=== PATIENT | female | born 1955 | race Caucasian/White ===

== ENCOUNTER 2017-12-02 10:36 | Inpatient (IN) ==
[2017-12-02] MEDS ORDERED: *HR* FentaNYL (PF) 100 MCG/2 ML VIAL IVP ONE ×3 (10:55→16:28)
[2017-12-02] MEDS ORDERED: Ondansetron 4 MG/2 ML VIAL IVP ONE ×2 (10:55→12:46)
--- NOTE | 2017-12-02 10:59 | Emergency Department Note ---
Disposition Clinical Impression: Lumbar degenerative disc disease Lumbar stenosis Qualifiers: Neurogenic claudication status: without neurogenic claudication Qualified Code( s): M48.061 - Spinal stenosis, lumbar region without neurogenic claudication Disposition: Admitted As Inpatient Condition: Good Referrals: Able-Sally Sullivan DO [Primary Care Provider] - Forms: ED Satisfaction Letter, Work/School Release Time of Disposition: 14:57 Abdominal Pain HPI - General Chief Complaint: ED Abdominal Pain Stated Complaint: abd pain Time Seen by Provider: 12/02/17 10:47 Source: patient Mode of arrival: ambulatory Limitations: no limitations Nursing Notes Reviewed: Yes Vital Signs Reviewed: Yes - History of Present Illness HPI Narrative: 62-year-old female presents with left flank pain and began over the last day or so. Says it severe. 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 Consistency: constant Location: L flank Pain Scale: 10 Quality: cramping, aching Radiation: none Migration to: no migration Improves with: nothing Worsens with: nothing Associated symptoms: Reports: nausea, dysuria Treatments prior to arrival: none - Related Data Allergies Allergy/AdvReac Type Severity Reaction Status Date / Time acetaminophen Allergy Swelling Verified 12/02/17 10:39 [From Darvocet-N] of Lip/Tongue/Throat azithromycin [From Zithromax] Allergy Swelling Verified 12/02/17 10:39 of Lip/Tongue/Throat Penicillins Allergy Swelling Verified 12/02/17 10:39 of Lip/Tongue/Throat propoxyphene Allergy Swelling Verified 12/02/17 10:39 [From Darvocet-N] of Lip/Tongue/Throat All systems ED: reviewed and negative except as stated. Constitutional: Denies: fever, chills, weakness, weight change Eyes: Denies: eye pain, eye discharge, vision change ENT ED: Denies: ear pain, throat pain, dental pain, hearing loss, epistaxis, congestion, dysphagia Cardiovascular: Denies: chest pain, palpitations, dyspnea on exertion, edema, syncope Respiratory: Denies: cough, dyspnea, wheezes, hemoptysis, stridor Gastrointestinal: Reports: abdominal pain. Denies: nausea, vomiting, diarrhea, constipation, hematemesis, melena, hematochezia Genitourinary: Denies: dysuria, frequency, hematuria, discharge Musculoskeletal: Denies: back pain, neck pain, arthralgia, myalgia Integumentary: Denies: rash, abrasion, lesions Neurological: Denies: headache, weakness, numbness, paresthesias, confusion, abnormal gait, vertigo Psychiatric: Denies: anxiety, depression, suicidal thoughts, homicidal thoughts , auditory hallucinations, visual hallucinations Endocrine: Denies: fatigue Hematological/Lymphatic: Denies: easy bleeding, easy bruising Allergic/Immunologic: Denies: facial swelling, urticaria Abdominal Pain PMH - Past Medical History Medical history: Reports: fibromyalgia, RA, other Female Surgical History: Reports: sinus surgery, other Psychiatric history: Reports: no psych history - Social History Smoking status: Former smoker Alcohol use: Reports: rarely Drug use: Reports: none Physical Exam - General Limitations: no limitations General appearance: alert - Head Head exam: atraumatic, normocephalic, normal inspection - Eye Eye exam: Present: normal appearance, PERRL, EOMI - ENT ENT exam: normal exam, normal oropharynx, mucous membranes moist - Neck Neck exam: Present: normal inspection, full ROM, trachea midline - Chest Chest inspection: Present: normal inspection, symmetric chest wall rise - Respiratory Respiratory exam: Present: normal lung sounds bilaterally - Cardiovascular Cardiovascular exam: Present: regular rate, normal rhythm, normal heart sounds - Abdominal Exam Abdominal exam: Present: soft, tenderness. Absent: distention, guarding, rebound, rigidity Abdominal tenderness: Present: diffuse - Extremities Exam Extremities exam: Present: normal inspection, full ROM. Absent: tenderness, pedal edema - Expanded Lower Extremity Exam Neurovascular/Tendon exam: Absent: motor deficit, sensory deficit, tendon deficit Gait: observed and normal - Back Exam Back exam: Present: normal inspection, full ROM. Absent: tenderness - Neurological Exam Neurological exam: Present: alert, oriented X3 - Psychiatric Psychiatric exam: Present: normal affect, normal mood - Skin Skin exam: Present: warm, dry, intact, normal color Course - Reevaluation(s) Reevaluation #1: 62-year-old with severe radicular back pain MRI obtained that showed significant stenosis. Patient will be admitted for pain control and evaluation by back surgery. Time: 14:56 - Consultations Consultation #1: Discussed with Dr. Woods he will see the patient in consult. Time: 14:55 Consultation #2: Discussed with Dr. Garcia admit Time: 15:22 Vital Signs Temperature 96.6 F L 12/02/17 10:40 Pulse Rate 71 12/02/17 10:40 Respiratory Rate 20 12/02/17 10:40 Blood Pressure 166/78 12/02/17 10:40 O2 Sat by Pulse Oximetry 96 12/02/17 10:40 Temperature 96.6 F L 12/02/17 10:40 Pulse Rate 82 12/02/17 14:25 Respiratory Rate 16 12/02/17 14:25 Blood Pressure 117/80 12/02/17 14:25 O2 Sat by Pulse Oximetry 93 12/02/17 14:25 Oxygen Delivery Oxygen Delivery Room Air Abdominal Pain - Lab Data Lab results reviewed: Yes I reviewed the patient's lab results. Result diagrams: 12/02/17 11:11 12/02/17 11:11 Lab Results 12/02/17 12/02/17 12/02/17 Range/Units 10:55 11:11 11:11 WBC 10.5 (4.3-11.1) K/mcL RBC 5.19 H (3.82-4.97) M/mcL Hgb 14.5 (11.5-15.4) g/dL Hct 44.8 (35.3-44.9) % MCV 86.3 (83.0-100.0) fL MCH 27.9 L (28.0-33.3) pg MCHC 32.4 (31.6-35.5) g/dL RDW 12.9 (11.5-14.5) % Plt Count 181 (140-400) K/mcL MPV 11.9 (9.4-12.4) fL Immature Gran % 0.3 (0-4) % Seg Neutrophils % 75.7 % Lymphocytes % 15.4 % Monocytes % 5.8 % Eosinophils % 2.2 % Basophils % 0.6 % Neutrophils # 8.0 (1.6-8.9) K/mcL Lymphocytes # 1.6 (0.6-4.6) K/mcL Monocytes # 0.6 (0.0-1.3) K/mcL Eosinophils # 0.2 (0.0-0.6) K/mcL Basophils # 0.1 (0.0-0.2) K/mcL Sodium 136 (136-145) mEq/L Potassium 4.6 (3.5-5.1) mEq/L Chloride 104 (98-107) mEq/L Carbon Dioxide 25 (23-29) mEq/L BUN 12 (8-23) mg/dL Creatinine 0.78 (0.60-1.20) mg/dL Est GFR ( Amer) > 60 (> 60) Est GFR (Non-Af Amer) > 60 (> 60) BUN/Creatinine Ratio 15 (6-26) Glucose 102 (70-105) mg/dL Calculated Osmolality 282 (280-300) Lactic Acid (0.5-2.2) mmol/L Calcium 9.4 (8.6-10.3) mg/dL Total Bilirubin 1.3 H (0.3-1.0) mg/dL Direct Bilirubin 0.2 (0.0-0.2) mg/dL Indirect Bilirubin 1.1 (0.0-1.2) mg/dL AST 19 (13-39) Units/L ALT 17 (7-52) Units/L Alkaline Phosphatase 85 (34-104) Units/L Serum Total Protein 7.2 (6.4-8.9) g/dL Albumin 4.2 (3.5-5.7) g/dL Globulin 3.0 (2.4-3.5) g/dL Albumin/Globulin Ratio 1.4 (1.1-2.2) Amylase 31 (29-103) Units/L Lipase 17 (11-82) Units/L Urine Color Yellow (Yellow) Urine Clarity Slightly Hazy (Clear) Urine pH 6.0 (5.0-8.0) pH Units Ur Specific [place] 1.023 (1.010-1.025) Urine Protein Negative (Neg-Trace) mg/dL Urine Glucose (UA) Normal (Normal) mg/dL Urine Ketones Negative (Negative) mg/dL Urine Blood Negative (Negative) Urine Nitrite Negative (Negative) Urine Bilirubin Negative (Negative) Urine Urobilinogen Normal (Normal) mg/dL Ur Leukocyte Esterase Trace H (Negative) Urine Microscopic RBC 3-5 H (0-3) per hpf Urine Microscopic WBC 3-5 H (0-3) per hpf Ur Squamous Epith Cells Many H (None-Few) per lpf Urine Bacteria None Seen (None-Few) per hpf Hyaline Casts None Seen (None-Few) per lpf Ur Culture Indicated? NO. (NO) 12/02/17 Range/Units 11:55 WBC (4.3-11.1) K/mcL RBC (3.82-4.97) M/mcL Hgb (11.5-15.4) g/dL Hct (35.3-44.9) % MCV (83.0-100.0) fL MCH (28.0-33.3) pg MCHC (31.6-35.5) g/dL RDW (11.5-14.5) % Plt Count (140-400) K/mcL MPV (9.4-12.4) fL Immature Gran % (0-4) % Seg Neutrophils % % Lymphocytes % % Monocytes % % Eosinophils % % Basophils % % Neutrophils # (1.6-8.9) K/mcL Lymphocytes # (0.6-4.6) K/mcL Monocytes # (0.0-1.3) K/mcL Eosinophils # (0.0-0.6) K/mcL Basophils # (0.0-0.2) K/mcL Sodium (136-145) mEq/L Potassium (3.5-5.1) mEq/L Chloride (98-107) mEq/L Carbon Dioxide (23-29) mEq/L BUN (8-23) mg/dL Creatinine (0.60-1.20) mg/dL Est GFR ( Amer) (> 60) Est GFR (Non-Af Amer) (> 60) BUN/Creatinine Ratio (6-26) Glucose (70-105) mg/dL Calculated Osmolality (280-300) Lactic Acid 1.0 (0.5-2.2) mmol/L Calcium (8.6-10.3) mg/dL Total Bilirubin (0.3-1.0) mg/dL Direct Bilirubin (0.0-0.2) mg/dL Indirect Bilirubin (0.0-1.2) mg/dL AST (13-39) Units/L ALT (7-52) Units/L Alkaline Phosphatase (34-104) Units/L Serum Total Protein (6.4-8.9) g/dL Albumin (3.5-5.7) g/dL Globulin (2.4-3.5) g/dL Albumin/Globulin Ratio (1.1-2.2) Amylase (29-103) Units/L Lipase (11-82) Units/L Urine Color (Yellow) Urine Clarity (Clear) Urine pH (5.0-8.0) pH Units Ur Specific [place] (1.010-1.025) Urine Protein (Neg-Trace) mg/dL Urine Glucose (UA) (Normal) mg/dL Urine Ketones (Negative) mg/dL Urine Blood (Negative) Urine Nitrite (Negative) Urine Bilirubin (Negative) Urine Urobilinogen (Normal) mg/dL Ur Leukocyte Esterase (Negative) Urine Microscopic RBC (0-3) per hpf Urine Microscopic WBC (0-3) per hpf Ur Squamous Epith Cells (None-Few) per lpf Urine Bacteria (None-Few) per hpf Hyaline Casts (None-Few) per lpf Ur Culture Indicated? (NO) - Radiology Data Radiology results reviewed: Yes I reviewed the patient's radiology results. Abdomen/Pelvis CT 12/02/17 10:49 IMPRESSION: No acute abnormality of the abdomen or pelvis. D/ / Diego Correa MD / Diego Correa MD Interpreting Provider: Diego Correa MD Abdomen/Pelvis CT 12/02/17 10:49 IMPRESSION: No acute abnormality of the abdomen or pelvis. D/ / Diego Correa MD / Diego Correa MD Interpreting Provider: Diego Correa MD Lumbar Spine MRI 12/02/17 12:42 IMPRESSION: Degenerative thecal sac narrowing and neural foraminal stenosis of the lower lumbar spine. Nonspecific geographic signal abnormality along the superior endplate of L2 with corresponding and mild adjacent soft tissue enhancement. This could reflect a stress reaction. Infection considered less likely but clinical correlation and follow-up exam advised. D/ / Jasbir Altman MD / Jasbir Altman MD Interpreting Provider: Jasbir Altman MD
[2017-12-02 11:04] LABS: Bilirubin,Urine Negative (Negative); Blood,Urine Negative (Negative); Color,Urine Yellow (Yellow); Glucose,Urine (UA) Normal (Normal); Ketones,Urine Negative (Negative); Leukocyte Esterase,Urine Trace (Negative); Nitrite,Urine Negative (Negative); Protein,Urine Negative (Neg-Trace); Specific Gravity,Urine 1.023 (1.010-1.025); Urobilinogen,Urine Normal (Normal)
[2017-12-02 11:06] LABS: Bacteria,Urine None Seen per hpf (None-Few); Hyaline Casts,Urine None Seen per lpf (None-Few); Squamous Epithelial Cell,Urine Many per lpf (None-Few)
[2017-12-02 11:07] LABS: Clarity,Urine Slightly Hazy (Clear)
[2017-12-02 11:42] LABS: Basophils # 0.1 K/mcL (0.0-0.2); Basophils % 0.6 %; Eosinophils # 0.2 K/mcL (0.0-0.6); Eosinophils % 2.2 %; Hematocrit 44.8 % (35.3-44.9); Hemoglobin 14.5 g/dL (11.5-15.4); Immature Granulocytes % 0.3 % (0-4); Lymphocytes # 1.6 K/mcL (0.6-4.6); Lymphocytes % 15.4 %; Mean Corpuscular HGB Conc 32.4 g/dL (31.6-35.5); Mean Corpuscular Hemoglobin 27.9 pg (28.0-33.3); Mean Corpuscular Volume 86.3 fL (83.0-100.0); Mean Platelet Volume 11.9 fL (9.4-12.4); Monocytes # 0.6 K/mcL (0.0-1.3); Monocytes % 5.8 %; Platelet Count 181 K/mcL (140-400); Red Blood Count 5.19 M/mcL (3.82-4.97); Red Cell Distribution Width 12.9 % (11.5-14.5); Segmented Neutrophils % 75.7 %
[2017-12-02 12:02] LABS: Alanine Aminotransferase 17 Units/L (7-52); Albumin 4.2 g/dL (3.5-5.7); Albumin/Globulin Ratio 1.4 (1.1-2.2); Alkaline Phosphatase 85 Units/L (34-104); Amylase 31 Units/L (29-103); Aspartate Amino Transferase 19 Units/L (13-39); BUN/Creatinine Ratio 15 (6-26); Bilirubin,Direct 0.2 mg/dL (0.0-0.2); Bilirubin,Indirect 1.1 mg/dL (0.0-1.2); Bilirubin,Total 1.3 mg/dL (0.3-1.0); Blood Urea Nitrogen 12 mg/dL (8-23); Calcium 9.4 mg/dL (8.6-10.3); Carbon Dioxide 25 mEq/L (23-29); Chloride 104 mEq/L (98-107); Glucose 102 mg/dL (70-105); Lipase 17 Units/L (11-82); Osmolality,Calculated 282 (280-300); Potassium 4.6 mEq/L (3.5-5.1); Sodium 136 mEq/L (136-145); Total Protein 7.2 g/dL (6.4-8.9); eGFR For African Americans > 60 (> 60); eGFR For Non-African Americans > 60 (> 60)
[2017-12-02] MEDS ORDERED: Ondansetron ODT 4 MG TAB.RAPDIS SL ONE (12:43)
[2017-12-02] MEDS ORDERED: Ondansetron 4 MG/2 ML VIAL IVP PRN (17:50)
[2017-12-02] MEDS ORDERED: tiZANidine 4 MG TABLET PO PRN (17:50)
[2017-12-02] MEDS ORDERED: *HR* LORazepam 0.5 MG TABLET PO PRN (17:50)
[2017-12-02] MEDS ORDERED: *HR* FentaNYL (PF) 100 MCG/2 ML VIAL IVP PRN (17:50)
[2017-12-02] MEDS ORDERED: Naloxone 0.4 MG/ML INJ IVP PRN (17:52)
--- NOTE | 2017-12-02 18:04 | Internal Med History&Physical ---
<Chalino Chappell J - Last Filed: 12/02/17 17:58> Date of Encounter: 12/02/17 Time of Encounter: 17:58 Internal Medicine - H&P: HPI Chief complaint: lower back and BLE pain and weakness Admitted From: Home Plans for Post Hospital Care: Home History of present illness: Ms. Higgins is a 62 year old female with fibromyalgia, RA and DDD. She presents today with lumbar pain with radiation to the B/L legs. She reports that the pain began 2-weeks ago after falling. She reports that after the fall she began taking oral steroids that she had lying around and reports that the pain significantly eased. She notes that yesterday while cleaning her home she began to experience lumbar pain with sciatica like pain in B/L legs as well as B /L leg weakness. This morning she awoke and was unable to tolerate the pain. Since this morning she has an increased in leg weakness as well. She denies any unilateral parasthesias, extremity swelling, loss of bowel or bladder function. She is reporting spasms/cramping in BLE. MRI lumbar spine today reveals disc bulge from L3-S1 and moderate left sided neural foraminal stenosis in L4-S1. Past Med Surg Social Fam HX - Past Medical History Medical history: fibromyalgia, RA, other Psychiatric history: no psych history - Social History Smoking Status: Former smoker Smokeless Tobacco Status: No Alcohol use: rarely Drug use: none - Family History Mother Living Status: Hx Family Cancer: Yes (lung ca) Internal Medicine - H&P: Meds Budesonide [Rhinocort Allergy] 1 spray NS DAILY 12/02/17 [History] LORazepam [Ativan] 0.5 mg PO DAILY PRN 12/02/17 [History] Oxycodone HCl/Acetaminophen [Percocet 10-325 mg Tablet] 1 each PO TID PRN [History] Tizanidine HCl 4 mg PO BID PRN 12/02/17 [History] 3 Allergy/AdvReac Type Severity Reaction Status Date / Time acetaminophen Allergy Swelling Verified 12/02/17 10:39 [From Darvocet-N] of Lip/Tongue/Throat azithromycin [From Zithromax] Allergy Swelling Verified 12/02/17 10:39 of Lip/Tongue/Throat Penicillins Allergy Swelling Verified 12/02/17 10:39 of Lip/Tongue/Throat propoxyphene Allergy Swelling Verified 12/02/17 10:39 [From La-Carlos] of Lip/Tongue/Throat All Systems PM: A 10-system review of systems was performed and is negative for pertinent findings except as documented above in the HPI. Review of systems: REVIEW OF SYSTEMS GENERAL: Negative for any nausea, vomiting, fevers, chills, or weight loss. NEUROLOGIC: Negative for any blurry vision, blind spots, double vision, facial asymmetry, dysphagia, dysarthria, hemiparesis, hemisensory deficits, vertigo, ataxia. HEENT: Negative for any head trauma, neck trauma, neck stiffness, photophobia, phonophobia, sinusitis, rhinitis. CARDIAC: Negative for any chest pain, dyspnea on exertion, paroxysmal nocturnal dyspnea, peripheral edema. PULMONARY: Negative for any shortness of breath, wheezing, COPD, or TB exposure. GASTROINTESTINAL: Negative for any abdominal pain, nausea, vomiting, bright red blood per rectum, melena, incontinence. GENITOURINARY: Negative for any dysuria, hematuria, incontinence. INTEGUMENTARY: Negative for any rashes, cuts, insect bites. MUSCULOSKELETAL: Lower back pain B/L worse on left with radiation to B/L legs RHEUMATOLOGIC: Negative for any joint pains, photosensitive rashes, history of vasculitis or kidney problems. HEMATOLOGIC: Negative for any abnormal bruising, frequent infections or bleeding. - Constitutional Vitals: Temp Pulse Resp BP Pulse Ox 98.1 F 73 17 150/84 94 12/02/17 17:11 12/02/17 17:11 12/02/17 17:11 12/02/17 17:11 12/02/17 17:11 General appearance: Present: cooperative, A&O X 3, no acute distress, answers questions appropriately Exam: PHYSICAL EXAMINATION: GENERAL: The patient is a well-developed, well-nourished male in no apparent distress. He is alert and oriented x3. VITAL SIGNS: Temperature 98.4, pulse 72, respirations 18, blood pressure 146/78 , and O2 saturation 96% on room air. HEENT: Head is normocephalic and atraumatic. Extraocular muscles are intact. Pupils are equal, round, and reactive to light and accommodation. Nares appeared normal. Mouth is well hydrated and without lesions. Mucous membranes are moist. Posterior pharynx clear of any exudate or lesions. NECK: Supple. No carotid bruits. No lymphadenopathy or thyromegaly. LUNGS: Clear to auscultation. HEART: Regular rate and rhythm without murmur. ABDOMEN: Soft, nontender, and nondistended. Positive bowel sounds. No hepatosplenomegaly was noted. MUSCULOSKELETAL: Bilateral lower extremity weakness. Limited range of motion due to intense pain. Pain increases with range of motion. No extremity swelling or tenderness noted SKIN: No ulceration or induration present. Internal Med - H&P Results - Labs CBC & Chem 7: 12/02/17 11:11 12/02/17 11:11 - Impressions Impressions Abdomen/Pelvis CT 12/02/17 10:49 IMPRESSION: No acute abnormality of the abdomen or pelvis. D/ / Diego Correa MD / Diego Correa MD Interpreting Provider: Diego Correa MD Lumbar Spine MRI 12/02/17 12:42 IMPRESSION: Degenerative thecal sac narrowing and neural foraminal stenosis of the lower lumbar spine. Nonspecific geographic signal abnormality along the superior endplate of L2 with corresponding and mild adjacent soft tissue enhancement. This could reflect a stress reaction. Infection considered less likely but clinical correlation and follow-up exam advised. D/ / Jasbir Altman MD / Jasbir Altman MD Interpreting Provider: Jasbir Altman MD - Assessment and plan (1) Lumbar degenerative disc disease Current Visit: Yes Status: Acute Assessment and plan: Presents today with low back pain, left greater than right. Also reporting bilateral lower extremity pain as well as weakness. Denies any numbness tingling. MRI today showed degenerative disc disease as well as foraminal stenosis. History of chronic degenerative disc disease. -Pain management with Percocet per home dose and breakthrough fentanyl, Toradol IV push when necessary -Consult orthopedic-Dr. Woods will see the patient in consultation -Consult to clinical social work therapist -Heparin for DVT prophylaxis -CBC D and BMP in the morning (2) Lumbar stenosis Current Visit: Yes Status: Acute Qualifiers: Neurogenic claudication status: without neurogenic claudication Qualified Code(s): M48.061 - Spinal stenosis, lumbar region without neurogenic claudication (3) Leukocytosis Current Visit: Yes Status: Acute Assessment and plan: Leukocytosis noted on CBC. Patient reports she has been taking oral steroids for her back pain. Qualifiers: Leukocytosis type: unspecified Qualified Code(s): D72.829 - Elevated white blood cell count, unspecified - Time Spent With Patient Total time spent is greater than 50% in coordination of care (as documented) at patient's floor/unit and/or counseling patient: less than 15 minutes <Glenn Garcia - Last Filed: 12/03/17 07:33> Date of Encounter: 12/03/17 Internal Medicine - H&P: HPI History of present illness: Ms. Higgins is a 62 year old female All Systems PM: A 10-system review of systems was performed and is negative for pertinent findings except as documented above in the HPI. - Constitutional Vitals: Temp Pulse Resp BP Pulse Ox 97.7 F 70 14 118/68 95 12/03/17 04:10 12/03/17 04:10 12/03/17 04:10 12/03/17 04:10 12/03/17 04:10 Internal Med - H&P Results - Labs CBC & Chem 7: 12/03/17 00:57 12/03/17 00:57 Labs: Short CBC 12/03/17 Range/Units 00:57 WBC 8.9 (4.3-11.1) K/mcL Hgb 14.0 (11.5-15.4) g/dL Hct 43.4 (35.3-44.9) % Plt Count 192 (140-400) K/mcL BMP 12/03/17 00:57 Sodium 141 Potassium 3.7 Chloride 107 Carbon Dioxide 27 BUN 11 Creatinine 0.96 Glucose 92 Calcium 8.8 - Attending Attestation The patient was independently examined and her available records, labs and imaging were reviewed. i agree with the JINRIKSHA DRIVER's A&P. She has severe degenerative changes of the lumbar spine which are likely the cause of her presenting symptoms. She denies saddle anesthesia, urinary or fecal incontinence. She is still in severe pain and PRN Fentanyl will be continued. Her physical exam is unremarkable accept for her lumbar spine and leg pain. Dr. Guan of spine surgery was contacted by the ER attending and per report will see her tomorrow. She is otherwise stable. - Assessment and plan (1) Lumbar degenerative disc disease Current Visit: Yes Status: Acute (2) Lumbar stenosis Current Visit: Yes Status: Acute Qualifiers: Neurogenic claudication status: without neurogenic claudication Qualified Code(s): M48.061 - Spinal stenosis, lumbar region without neurogenic claudication (3) Leukocytosis Current Visit: Yes Status: Acute Qualifiers: Leukocytosis type: unspecified Qualified Code(s): D72.829 - Elevated white blood cell count, unspecified - Time Spent With Patient Total time spent is greater than 50% in coordination of care (as documented) at patient's floor/unit and/or counseling patient:
[2017-12-02] MEDS: *HR* Heparin 5,000 UNIT/ML VIAL SQ SCH (18:38)
[2017-12-02] MEDS: Ketorolac 30 MG/ML VIAL IVP PRN (19:27)
[2017-12-02] MEDS: *HR* OxyCODONE/APAP 10/325 TABLET PO PRN (20:21)
[2017-12-03 01:51] LABS: Hematocrit 43.4 % (35.3-44.9); Immature Platelets 11.8 % (1.1-6.1); Mean Corpuscular HGB Conc 32.3 g/dL (31.6-35.5); Mean Corpuscular Hemoglobin 27.9 pg (28.0-33.3); Mean Corpuscular Volume 86.5 fL (83.0-100.0); Mean Platelet Volume 11.6 fL (9.4-12.4); Red Blood Count 5.02 M/mcL (3.82-4.97); Red Cell Distribution Width 12.9 % (11.5-14.5)
[2017-12-03 02:23] LABS: BUN/Creatinine Ratio 11 (6-26); Blood Urea Nitrogen 11 mg/dL (8-23); Calcium 8.8 mg/dL (8.6-10.3); Carbon Dioxide 27 mEq/L (23-29); Chloride 107 mEq/L (98-107); Glucose 92 mg/dL (70-105); Osmolality,Calculated 291 (280-300); Potassium 3.7 mEq/L (3.5-5.1); Sodium 141 mEq/L (136-145); eGFR For African Americans > 60 (> 60); eGFR For Non-African Americans 59 (> 60)
[2017-12-03] MEDS: Ketorolac 30 MG/ML VIAL IVP PRN ×2 (03:30→11:10)
[2017-12-03] MEDS: *HR* Heparin 5,000 UNIT/ML VIAL SQ SCH (05:39)
[2017-12-03] MEDS: *HR* OxyCODONE/APAP 10/325 TABLET PO PRN ×2 (08:51→17:49)
[2017-12-03] MEDS ORDERED: Fluticasone Propionate Nasal 50 MCG/SPRAY BOTTLE NS SCH (09:00)
[2017-12-03] MEDS ORDERED: [UNRECOGNIZED DRUG - REMARK] NS SCH (09:00)
[2017-12-03] MEDS ORDERED: MethylPREDNISolone 40 MG/ML VIAL IVP SCH (11:30)
--- NOTE | 2017-12-03 16:37 | Discharge Summary ---
- NOTES TO OUTPATIENT PROVIDER Notes to Outpatient Provider: Pt was transferred to [place] for evaluation of lumbar spine disease Date of Encounter: 12/03/17 Time of Encounter: 16:00 - Discharge Diagnosis (1) Lumbar degenerative disc disease Priority: Primary Status: Acute (2) Lumbar stenosis Priority: Primary Status: Acute Qualifiers: Neurogenic claudication status: without neurogenic claudication Qualified Code(s): M48.061 - Spinal stenosis, lumbar region without neurogenic claudication (3) Leukocytosis Priority: Secondary Status: Resolved Qualifiers: Leukocytosis type: unspecified Qualified Code(s): D72.829 - Elevated white blood cell count, unspecified Hospital course: Ms. Higgins is a 62 year old female with hx of brain mass and Chiari malformation s/p craniectomy presented with abrupt low back pain. She was placed in observation for further treatment. Ms Higgins was admitted to [facility]. She was started on meds for pain control. She had no concerning neuro findings on admit. Spine surgery was consulted. Today steroids were started with some improvement. Discussed with patient and daughter. They have seen neurosurgeon at [place] and requested transfer there for further care. Due to her complicated spinal history she will be transferred to [place] today. Discharge discussed with: patient, family, nurse - Time Spent with Patient Total time spent providing and/or coordinating discharge services: 41min - Discharge Medications Home Medications: Budesonide [Rhinocort Allergy] 1 spray NS DAILY 12/02/17 [History] LORazepam [Ativan] 0.5 mg PO DAILY PRN 12/02/17 [History] Oxycodone HCl/Acetaminophen [Percocet 10-325 mg Tablet] 1 each PO TID PRN [History] Tizanidine HCl 4 mg PO BID PRN 12/02/17 [History] Polyethylene Glycol 3350 [MiraLAX] 17 gm PO DAILY powd.pack 12/03/17 [Rx] Allergies/Adverse Reactions: 3 Allergy/AdvReac Type Severity Reaction Status Date / Time acetaminophen Allergy Swelling Verified 12/02/17 10:39 [From Darvocet-N] of Lip/Tongue/Throat azithromycin [From Zithromax] Allergy Swelling Verified 12/02/17 10:39 of Lip/Tongue/Throat Penicillins Allergy Swelling Verified 12/02/17 10:39 of Lip/Tongue/Throat propoxyphene Allergy Swelling Verified 12/02/17 10:39 [From Darvocet-N] of Lip/Tongue/Throat Date of admission: 12/03/17 11:45 Primary care physician: Sally Shankar Discharging clinician: Milo Quinones Anticipated date of discharge: 12/03/17 - Constitutional Vitals: Temp Pulse Resp BP Pulse Ox 97.7 F 72 16 116/78 92 12/03/17 12:32 12/03/17 12:32 12/03/17 12:32 12/03/17 12:32 12/03/17 12:32 General appearance: Present: cooperative, A&O X 3, answers questions appropriately - Head Head exam: Present: normocephalic - Eye Eye exam: Present: conjuntiva pink - ENT ENT exam: Present: mucous membranes moist - Respiratory Respiratory exam: Present: CTAB. Absent: rales, rhonchi, wheezes - Cardiovascular Cardiovascular exam: Present: RRR. Absent: tachycardia - GI/Abdominal GI/Abdominal exam: Present: soft. Absent: tenderness - Extremities Exam Extremities exam: Present: warm. Absent: tenderness - Neurological Exam Neurological exam: Present: alert, oriented X3, no focal deficits - Skin Skin exam: Present: dry, warm - Patient Status Disposition: Transfer Short-Term Hosp Condition: Good Functional capacity at discharge: bed bound Overall status at discharge: patient is not back to baseline - Discharge Instructions Follow Up With: Raad-Sally Sullivan DO [Primary Care Provider] - - Diet and Activity Activity: other Diet: advance to your usual diet
[2017-12-03 17:48] VITALS: BP 121/71
[2017-12-03] MEDS ORDERED: *HR* Heparin 5,000 UNIT/ML VIAL SQ SCH (18:00)
--- NOTE | 2017-12-07 00:50 | Electrocardiograph Report ---
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
== END 2017-12-03 18:31 | disposition short-term general hospital (02) | DRG 347 ==
LOC: EMEROO 10:36 → 3NENU 10:36 → SUATTDRO 16:21 → 3NENU 16:55
PROVIDERS: ADMIT Internal Medicine; ATTEND Internal Medicine

== ENCOUNTER 2017-12-13 17:12 | Observation (INO) ==
[2017-12-13 18:20] LABS: Basophils # 0.1 K/mcL (0.0-0.2); Basophils % 0.5 %; Eosinophils # 0.4 K/mcL (0.0-0.6); Eosinophils % 2.6 %; Hematocrit 46.7 % (35.3-44.9); Hemoglobin 14.8 g/dL (11.5-15.4); Immature Granulocytes % 0.4 % (0-4); Lymphocytes # 4.5 K/mcL (0.6-4.6); Lymphocytes % 30.5 %; Mean Corpuscular HGB Conc 31.7 g/dL (31.6-35.5); Mean Corpuscular Hemoglobin 27.9 pg (28.0-33.3); Mean Corpuscular Volume 87.9 fL (83.0-100.0); Mean Platelet Volume 11.5 fL (9.4-12.4); Monocytes # 1.5 K/mcL (0.0-1.3); Monocytes % 9.8 %; Neutrophils # 8.4 K/mcL (1.6-8.9); Platelet Count 297 K/mcL (140-400); Red Blood Count 5.31 M/mcL (3.82-4.97); Red Cell Distribution Width 13.2 % (11.5-14.5); Segmented Neutrophils % 56.2 %
[2017-12-13 18:40] LABS: Troponin I 0.03 ng/mL (< 0.04)
[2017-12-13 18:43] LABS: Alanine Aminotransferase 61 Units/L (7-52); Albumin 3.9 g/dL (3.5-5.7); Albumin/Globulin Ratio 1.4 (1.1-2.2); Alkaline Phosphatase 96 Units/L (34-104); Aspartate Amino Transferase 33 Units/L (13-39); BUN/Creatinine Ratio 25 (6-26); Bilirubin,Total 0.5 mg/dL (0.3-1.0); Blood Urea Nitrogen 22 mg/dL (8-23); Calcium 9.3 mg/dL (8.6-10.3); Carbon Dioxide 26 mEq/L (23-29); Chloride 105 mEq/L (98-107); Globulin 2.8 g/dL (2.4-3.5); Glucose 81 mg/dL (70-105); Osmolality,Calculated 288 (280-300); Potassium 4.3 mEq/L (3.5-5.1); Sodium 138 mEq/L (136-145); Total Protein 6.7 g/dL (6.4-8.9); eGFR For African Americans > 60 (> 60); eGFR For Non-African Americans > 60 (> 60)
[2017-12-13 19:49] LABS: Bilirubin,Urine Negative (Negative); Blood,Urine Negative (Negative); Clarity,Urine Clear (Clear); Color,Urine Yellow (Yellow); Glucose,Urine (UA) Normal (Normal); Ketones,Urine Negative (Negative); Leukocyte Esterase,Urine Negative (Negative); Nitrite,Urine Negative (Negative); PH,Urine 5.5 pH Units (5.0-8.0); Protein,Urine Negative (Neg-Trace); Specific Gravity,Urine 1.026 (1.010-1.025); Urobilinogen,Urine Normal (Normal)
[2017-12-13] MEDS ORDERED: Isovue-370 500 ML INFUS..BTL IV ONE (21:50)
--- NOTE | 2017-12-13 21:52 | Emergency Department Note ---
Disposition Clinical Impression: Risk for falls, Dizziness Disposition: Admitted As Inpatient Condition: Good Referrals: Raad-Sally Sullivan DO [Primary Care Provider] - Forms: ED Satisfaction Letter Time of Disposition: 02:23 General Adult HPI - General Chief complaint: ED Arrhythmia/Palpitations Stated complaint: "fall/Dizziness/head injury,palpitations" Time Seen by Provider: 12/13/17 20:27 Source: patient Limitations: no limitations Nursing Notes Reviewed: Yes Vital Signs Reviewed: Yes - History of Present Illness HPI Narrative: 62-year-old female female presents with concerns for 2 separate falls. She mentions she had fallen yesterday, she is unsure why. She complains of pain on her left extremity, headache, neck and back pain. She is coming by her daughter , who provided some history. Apparently patient had also fallen over a chair at a doctor's office approximately one week ago and they mention since then patient has had worsening vertigo, and difficulty ambulating, and daughter mentions intermittent nystagmus. Patient describes what she feels might be seizures in her head. She also mentions that she has had some chest tightness, earlier in the week, no relief with nitroglycerin. She does mention history of syncope, MS. They deny any fevers, coughs, confusion, urinary incontinence, bowel or bladder symptoms, hemoptysis, abdominal pain. Pain Scale: 8 - Related Data Home Medications Medication Instructions Recorded Confirmed Budesonide [Rhinocort Allergy] 1 spray NS DAILY 12/02/17 12/14/17 LORazepam [Ativan] 0.5 mg PO DAILY PRN 12/02/17 12/14/17 Oxycodone HCl/Acetaminophen 1 each PO TID PRN 12/02/17 12/14/17 [Percocet 10-325 mg Tablet] Tizanidine HCl 4 mg PO BID PRN 12/02/17 12/14/17 Previous Rx's Medication Instructions Recorded Polyethylene Glycol 3350 [MiraLAX] 17 gm PO DAILY powd.pack 12/03/17 Allergies Allergy/AdvReac Type Severity Reaction Status Date / Time acetaminophen Allergy Swelling Verified 12/13/17 17:32 [From Darvocet-N] of Lip/Tongue/Throat azithromycin [From Zithromax] Allergy Swelling Verified 12/13/17 17:32 of Lip/Tongue/Throat Penicillins Allergy Swelling Verified 12/13/17 17:32 of Lip/Tongue/Throat propoxyphene Allergy Swelling Verified 12/13/17 17:32 [From Markie] of Lip/Tongue/Throat All systems ED: reviewed and negative except as stated. Review of Systems: As Per HPI Constitutional: Reports: as per HPI Eyes: Reports: as per HPI ENT ED: Denies: ear pain Cardiovascular: Reports: as per HPI Respiratory: Denies: cough, dyspnea, wheezes Gastrointestinal: Reports: as per HPI Genitourinary: Denies: dysuria, hematuria, discharge Musculoskeletal: Reports: as per HPI Integumentary: Denies: rash Neurological: Reports: as per HPI. Denies: weakness Psychiatric: Reports: anxiety Endocrine: Denies: fatigue Hematological/Lymphatic: Denies: easy bleeding Allergic/Immunologic: Denies: facial swelling Past Medical History - Past Medical History Medical history: Reports: fibromyalgia, RA, other Psychiatric history: Reports: no psych history - Social History Smoking Status: Former smoker Smokeless Tobacco Status: No Alcohol use: Reports: rarely Drug use: Reports: none Physical Exam - General Limitations: no limitations General appearance: alert - Head Head exam: normocephalic - Eye Eye exam: Present: normal appearance, EOMI - ENT ENT exam: normal exam, normal oropharynx - Neck Neck exam: Present: full ROM, tenderness. Absent: lymphadenopathy - Chest Chest inspection: Present: symmetric chest wall rise - Respiratory Respiratory exam: Present: normal lung sounds bilaterally. Absent: respiratory distress, wheezes, accessory muscle use, prolonged expiratory phase - Cardiovascular Cardiovascular exam: Present: regular rate, normal rhythm - Abdominal Exam Abdominal exam: Present: soft, Non-Tender. Absent: Knott's sign, Rovsing's sign, tenderness at McBurney's Point - Extremities Exam Extremities exam: Present: normal inspection, full ROM, normal capillary refill - Back Exam Back exam: Present: full ROM, tenderness. Absent: CVA tenderness (R), CVA tenderness (L) - Neurological Exam Neurological exam: Present: alert, oriented X3 - Psychiatric Psychiatric exam: Present: normal affect, normal mood - Skin Skin exam: Present: warm, dry, intact, normal color. Absent: rash, cyanosis, diaphoresis Course Course Narrative: 62-year-old female presents from home with multiple complaints. She describes falling yesterday in her home. Both she and her daughter mentions that he feels that this might be related to her vertigo which has been worsening over the past week, and daughter mentions that her gait has not been steady during this time as well. Patient describes falling over a chair at a doctor's office 1 week ago, she was initially evaluated in this department, admitted, transferred to [facility]. In addition to the vertigo, patient mentions that she has felt funny in her head, describing them as had convulsions. She does mention a history of syncope approximately 5 months ago, history of MS, and headache. Her fall yesterday she complains of left elbow pain, back pain, headache, which she did take a Percocet prior to arrival. She denies any prolonged downtime, and does not feel that she passed out. Patient had protocol orders upon her arrival by nursing, and had these returned while waiting for exam room. She does have an elevated white count. Patient denies any fevers or chills, but does mention that she had stopped Decadron approximately 4 days ago. - Reevaluation(s) Reevaluation #1: Patient discussed with Dr. Sun, who agreed to see patient. He also advised for imaging, including CT angiogram, CT cervical thoracic lumbar spine, CT head. Time: 21:47 Reevaluation #2: Patient's left elbow x-ray, and CT findings are unremarkable. She is resting complaint exam bed. Vital stable. I have discussed patient history, and workup with Dr. Sun, who agreed for admission due to fall risk, recent weakness, vertigo vs near syncope, and difficulty ambulating. Time: 00:45 Reevaluation #3: Pt discussed with and accepted by hospitalist Dr. Yuan Time: 02:22 Vital Signs Temperature 97.6 F 12/13/17 17:32 Pulse Rate 63 12/13/17 17:32 Respiratory Rate 20 12/13/17 17:32 Blood Pressure 125/73 12/13/17 17:32 O2 Sat by Pulse Oximetry 96 12/13/17 17:32 Temperature 98 F 12/13/17 20:56 Pulse Rate 68 12/14/17 03:50 Respiratory Rate 18 12/14/17 03:50 Blood Pressure 115/72 12/14/17 03:50 O2 Sat by Pulse Oximetry 98 12/14/17 03:50 Oxygen Delivery Oxygen Delivery Room Air Medical Decision Making - Lab Data Lab results reviewed: Yes I reviewed the patient's lab results. Result diagrams: 12/13/17 17:50 12/13/17 17:50 Lab Results 12/13/17 12/13/17 12/13/17 Range/Units 17:50 17:50 19:25 WBC 14.9 H (4.3-11.1) K/mcL RBC 5.31 H (3.82-4.97) M/mcL Hgb 14.8 (11.5-15.4) g/dL Hct 46.7 H (35.3-44.9) % MCV 87.9 (83.0-100.0) fL MCH 27.9 L (28.0-33.3) pg MCHC 31.7 (31.6-35.5) g/dL RDW 13.2 (11.5-14.5) % Plt Count 297 (140-400) K/mcL MPV 11.5 (9.4-12.4) fL Immature Gran % 0.4 (0-4) % Seg Neutrophils % 56.2 % Lymphocytes % 30.5 % Monocytes % 9.8 % Eosinophils % 2.6 % Basophils % 0.5 % Neutrophils # 8.4 (1.6-8.9) K/mcL Lymphocytes # 4.5 (0.6-4.6) K/mcL Monocytes # 1.5 H (0.0-1.3) K/mcL Eosinophils # 0.4 (0.0-0.6) K/mcL Basophils # 0.1 (0.0-0.2) K/mcL Sodium 138 (136-145) mEq/L Potassium 4.3 (3.5-5.1) mEq/L Chloride 105 (98-107) mEq/L Carbon Dioxide 26 (23-29) mEq/L BUN 22 (8-23) mg/dL Creatinine 0.87 (0.60-1.20) mg/dL Est GFR ( Amer) > 60 (> 60) Est GFR (Non-Af Amer) > 60 (> 60) BUN/Creatinine Ratio 25 (6-26) Glucose 81 (70-105) mg/dL Calculated Osmolality 288 (280-300) Calcium 9.3 (8.6-10.3) mg/dL Total Bilirubin 0.5 (0.3-1.0) mg/dL AST 33 (13-39) Units/L ALT 61 H (7-52) Units/L Alkaline Phosphatase 96 (34-104) Units/L Troponin I 0.03 (< 0.04) ng/mL Serum Total Protein 6.7 (6.4-8.9) g/dL Albumin 3.9 (3.5-5.7) g/dL Globulin 2.8 (2.4-3.5) g/dL Albumin/Globulin Ratio 1.4 (1.1-2.2) Urine Color Yellow (Yellow) Urine Clarity Clear (Clear) Urine pH 5.5 (5.0-8.0) pH Units Ur Specific [place] 1.026 H (1.010-1.025) Urine Protein Negative (Neg-Trace) mg/dL Urine Glucose (UA) Normal (Normal) mg/dL Urine Ketones Negative (Negative) mg/dL Urine Blood Negative (Negative) Urine Nitrite Negative (Negative) Urine Bilirubin Negative (Negative) Urine Urobilinogen Normal (Normal) mg/dL Ur Leukocyte Esterase Negative (Negative) Ur Culture Indicated? NO (NO) - Radiology Data Radiology results reviewed: Yes I reviewed the patient's radiology results. - EKG Data EKG #1 EKG attestation: Yes I reviewed and interpreted this EKG. EKG results narrative: Sinus rhythm, j borderline left axis deviation. Ventricular rate 63, NM interval 124 QRS duration 86, QT QTC 360/366 Attestation Statement - Attestation Attestation: For this encounter, I have reviewed the [employer] or PA documentation, treatment plan, and medical decision making; and I have had face to face time with this patient. Dizziness and fall. The patient does have multiple recent falls related to dizziness. We will proceed with admission after negative trauma scans to rule out acute traumatic injuries. The patient is requesting a nose and throat consult for dizziness as they have been effectively treated by ENT in the past for dizziness which is caused falls in the past.
[2017-12-14] MEDS ORDERED: diazePAM 5 MG TABLET PO ONE (01:20)
[2017-12-14] MEDS ORDERED: *HR* OxyCODONE/APAP 5/325 TABLET PO ONE (06:40)
[2017-12-14] MEDS ORDERED: Naloxone 0.4 MG/ML INJ IVP PRN (09:23)
[2017-12-14] MEDS ORDERED: Ibuprofen 400 MG TABLET PO PRN (09:23)
[2017-12-14] MEDS: 0.9 % Sodium Chloride 1,000 ML IVC SCH (11:19)
--- NOTE | 2017-12-14 14:21 | Internal Med History&Physical ---
Date of Encounter: 12/14/17 Time of Encounter: 09:30 Internal Medicine - H&P: HPI Chief complaint: Dizziness and fall Admitted From: Emergency Dept History of present illness: Ms. Higgins is a 62 year old female with a past medical history of brain mass, Chiari malformation status post craniectomy who presented to the hospital with ongoing worsening vertigo as well as a recent fall which the patient was very scared about. The patient has a known history of benign positional vertigo and sees a vestibular rehabilitation at [facility]. Patient states she only has had 1 treatment done with them which has not improved her vertigo symptoms. She states that she does continue to take Antivert which takes the edge off but her dizziness is never completely gone. She also stated that she fell in the last couple of days due to her dizziness. She had one episode of on and documented fall where the patient states she briefly lost consciousness and she is not aware of how long that lasted. She denied any loss of bowel or bladder sensation during this episode and hit the left side of her chest wall which she claims is tender at this point. She was very scared about this fall and wanted to find out the reason for why this happened. She denies any dizziness when she abruptly gets up from a sitting position especially if she does not move her head. Her past medical history is significant for degenerative joint disease and a spinal disc disease in addition to fibromyalgia. The patient recently finished a course of Decadron last week for her fibromyalgia Past Med Surg Social Fam HX - Past Medical History Medical history: fibromyalgia, RA, other Psychiatric history: no psych history - Social History Smoking Status: Former smoker Smokeless Tobacco Status: No Alcohol use: rarely Drug use: none - Family History Mother Living Status: Hx Family Cancer: Yes (lung ca) Internal Medicine - H&P: Meds Budesonide [Rhinocort Allergy] 1 spray NS DAILY 12/02/17 [History] LORazepam [Ativan] 0.5 mg PO DAILY PRN 12/02/17 [History] Oxycodone HCl/Acetaminophen [Percocet 10-325 mg Tablet] 1 each PO TID PRN [History] Tizanidine HCl 4 mg PO BID PRN 12/02/17 [History] Polyethylene Glycol 3350 [MiraLAX] 17 gm PO DAILY powd.pack 12/03/17 [Rx] Docusate Sodium [Dok] 200 mg PO BID PRN 12/14/17 [History] Lidocaine Patch [Lidoderm 5% patch] 1 patch TP DAILY 12/14/17 [History] Meclizine HCl [Verticalm] 25 mg PO TID PRN 12/14/17 [History] Naproxen [Naproxen] 500 mg PO BID PRN 12/14/17 [History] 3 Allergy/AdvReac Type Severity Reaction Status Date / Time acetaminophen Allergy Swelling Verified 12/13/17 17:32 [From Darvocet-N] of Lip/Tongue/Throat azithromycin [From Zithromax] Allergy Swelling Verified 12/13/17 17:32 of Lip/Tongue/Throat Penicillins Allergy Swelling Verified 12/13/17 17:32 of Lip/Tongue/Throat propoxyphene Allergy Swelling Verified 12/13/17 17:32 [From Darvocet-N] of Lip/Tongue/Throat All Systems PM: A 10-system review of systems was performed and is negative for pertinent findings except as documented above in the HPI. - Constitutional Vitals: Temp Pulse Resp BP Pulse Ox 97.6 F 61 16 108/69 95 12/14/17 09:40 12/14/17 09:40 12/14/17 09:40 12/14/17 09:40 12/14/17 10:46 Exam: GENERAL: Alert, moderate distress, cooperative, does not like to move her head and sits upright looking and 1 straight direction EYES: PERRLA, EOMI EARS: External ears normal, canals clear OROPHARYNX: Lips, mucosa, and tongue normal. Teeth and gums normal. Oropharynx normal. NECK: No jugulovenous distention, No carotid bruits, Carotid pulse normal contour, Supple LUNGS: Lungs clear to auscultation, Good diaphragmatic excursion CARDIAC: Normal S1 and S2; no rubs, murmurs, or gallops ABDOMEN: Abdomen soft, non-tender, BS normal, No masses or organomegaly EXTREMITIES: Extremities normal, no deformities, edema, clubbing or skin discoloration. Good capillary refill., No ulcers NEURO: Gait not tested due to patient preference. [place] Hallpike modified maneuver is grossly positive, Reflexes normal and symmetric. Sensation grossly intact, Cranial nerves II-XII intact PULSES: 2+ radial, 2+ carotid Rest of the exam is non contributory Internal Med - H&P Results - Labs CBC & Chem 7: 12/13/17 17:50 12/13/17 17:50 - Assessment and plan (1) Fall Current Visit: Yes Status: Acute Assessment and plan: Fall of unclear etiology at this point. Patient briefly did lose consciousness but does not have the classic features of bowel and bladder control which typically happen with a seizure. She does have some risk factors which could potentially be leading to a seizure disorder. I will obtain a brief 20 minute EEG at this point and obtain neurology consult. They have been notified and will be seeing the patient later on today. Given the leukocytosis I would have a low threshold for septic workup showed the leukocytosis does not improve with fluids alone. At this point her history does not mention any worrisome sepsis etiology in the background I will also place her on telemetry monitoring and check a 2-D echo to rule out any cardiac etiology for the same. On some physical therapy and occupational therapy for evaluation since the patient does state that she has difficulty in ambulation Qualifiers: Encounter type: initial encounter Qualified Code(s): W19.XXXA - Unspecified fall, initial encounter (2) Dizziness Current Visit: Yes Status: Acute Assessment and plan: Patient does have a diagnosis of benign positional vertigo and is seeking vestibular rehabilitation. She is already plugged in [facility] for the same. I will advise the patient to continue to keep those appointments because medication does not really help. While in-house I will continue the current dosing of meclizine (3) Lumbar degenerative disc disease Current Visit: No Status: Acute Assessment and plan: Continue outpatient physical therapy for the same. Continue when necessary NSAIDs while in the hospital (4) Leukocytosis Current Visit: No Status: Resolved Assessment and plan: Etiology at this point. She does not have any history which points to a septic focus. She was on steroids and completed them last week and that could explain the symptoms at this point. I will give her IV fluids and repeat CBC tomorrow morning and potentially would also indicate dehydration Qualifiers: Leukocytosis type: unspecified Qualified Code(s): D72.829 - Elevated white blood cell count, unspecified - Time Spent With Patient Total time spent is greater than 50% in coordination of care (as documented) at patient's floor/unit and/or counseling patient: Greater than 35 minutes
--- NOTE | 2017-12-14 16:36 | EEG/EMG/Oth Biometrics Report ---
EEG Procedure Report Date of procedure: 12/14/17 EEG Procedure: Routine EEG Procedure Note: Routine 21-channel digital EEG was obtained to rule out any seizure activity or focal abnormalities. FINDINGS: Background rhythm during awake stage shows well-organized, well- developed, average voltage 8 to 9 hertz alpha activity in the posterior regions. It blocks with eye opening and it is bilaterally synchronous and symmetrical. No [id number] discharges or any lateralizing abnormalities are seen. Photic stimulation did not produce any abnormalities. Hyperventilation was not performed, No abnormalities were found during the procedure. Intermittent EMG artifacts were seen. Stage II sleep was not achieved. IMPRESSION: Normal awake study. No epileptiform discharges or any other paroxysmal activities or focal abnormalities seen. Clinical correlation is recommended.
--- NOTE | 2017-12-14 16:43 | Neurology - Consult Note ---
Date of Encounter: 12/14/17 Time of Encounter: 16:40 Assessment and Plan (1) Positional vertigo Current Visit: Yes Status: Acute This patient who has an history of positional vertigo now having increasing symptoms but she described his symptoms as little bit different than her typical positional vertigo at the same time she is having this dizziness which is more lightheadedness along with it complaining of decreased blood pressure when she is laying down and also decreasing in the heart rate. The symptoms seems to be concerning, sounds more like a [place] phenomena though commonly seen in patient with brain herniation, but could be partially seen in patient with a Chiari mostly is due to increase in the intracranial pressure. Considering her history of craniectomy as well as Chiari malformation in the past I would suggest repeating an MRI of the brain along with an MRA especially to look for any decrease in the CSF flow. If that symptoms close it perhaps she may need CSF flow studies as well In the meantime may continue to treat her positional vertigo symptomatically She already had an EEG because of this unusual presentation though does really doubt that these are seizure or any seizure-like of activity but we will review the EEG At the same time check for any underlying metabolic or infectious etiology that might be causing or contributing to her symptoms May benefit from increasing fluid intake or perhaps may need a dose of steroids (2) History of Chiari malformation Current Visit: Yes Status: Acute (3) Status post craniectomy Current Visit: Yes Status: Acute (4) Dizziness Current Visit: Yes Status: Acute (5) Fall Current Visit: Yes Status: Acute Qualifiers: Encounter type: initial encounter Qualified Code(s): W19.XXXA - Unspecified fall, initial encounter (6) Lumbar degenerative disc disease Current Visit: No Status: Acute History of Present Illness HPI: Ms. Higgins is a 62 year old female with past medical history of brain mass ?? and Chiari malformation status post craniectomy several; years ago, presented to the hospital with ongoing worsening vertigo as well as a recent fall. Patient has a known history of benign positional vertigo and sees a vestibular rehabilitation at [facility]. Patient states she only has had 1 treatment done with them which has not improved her vertigo symptoms. She states that she does continue to take Antivert which helps some but her dizziness is never completely gone. She also stated that she fell in the last couple of days due to her dizziness. She had one episode of on and documented fall where the patient states she briefly lost consciousness and she is not aware of how long that lasted. She denied any loss of bowel or bladder sensation during this episode and hit the left side of her chest wall, she is very concern about this fall and wanted to find out the reason for why this happened. Her past medical history is significant for degenerative joint disease and a spinal disc disease and fibromyalgia. The patient recently finished a course of Decadron last week for her fibromyalgia. Patient was admitted earlier in the month at abdominal pain and lower extremity symptoms and was transferred to the [facility] because of her history of Chiari malformation and according to the patient she was seen by neurology and was recommended to have vestibular rehabilitation She also mentioned that it was noted that her blood pressure and heart rate seems to probably she lays down and increase that she stand up she is still having these symptoms and feels very scared about it She denies any double vision denies any focal motor weakness or any difficulty with swallowing Past Med Surg Social Fam HX - Past Medical History Medical history: fibromyalgia, RA, other Psychiatric history: no psych history - Social History Smoking Status: Former smoker Smokeless Tobacco Status: No Alcohol use: rarely Drug use: none - Family History Mother Living Status: Hx Family Cancer: Yes (lung ca) Medications and Allergies Budesonide [Rhinocort Allergy] 1 spray NS DAILY 12/02/17 [History] LORazepam [Ativan] 0.5 mg PO DAILY PRN 12/02/17 [History] Oxycodone HCl/Acetaminophen [Percocet 10-325 mg Tablet] 1 each PO TID PRN [History] Tizanidine HCl 4 mg PO BID PRN 12/02/17 [History] Polyethylene Glycol 3350 [MiraLAX] 17 gm PO DAILY powd.pack 12/03/17 [Rx] Docusate Sodium [Dok] 200 mg PO BID PRN 12/14/17 [History] Lidocaine Patch [Lidoderm 5% patch] 1 patch TP DAILY 12/14/17 [History] Meclizine HCl [Verticalm] 25 mg PO TID PRN 12/14/17 [History] Naproxen [Naproxen] 500 mg PO BID PRN 12/14/17 [History] 3 Allergy/AdvReac Type Severity Reaction Status Date / Time acetaminophen Allergy Swelling Verified 12/13/17 17:32 [From Darvocet-N] of Lip/Tongue/Throat azithromycin [From Zithromax] Allergy Swelling Verified 12/13/17 17:32 of Lip/Tongue/Throat Penicillins Allergy Swelling Verified 12/13/17 17:32 of Lip/Tongue/Throat propoxyphene Allergy Swelling Verified 12/13/17 17:32 [From Darvocet-N] of Lip/Tongue/Throat All Systems: The remainder of the systems were reviewed and are negative Physical Examination - Vital Signs Vital Signs: Initial Vital Signs Temp Pulse Resp BP Pulse Ox 97.6 F 63 20 125/73 96 12/13/17 17:32 04 17:32 12/13/17 17:32 12/13/17 17:32 12/13/17 17:32 - Constitutional General appearance: comfortable - Neurologic Sensorimotor examination: intact Motor examination - right side: 4/5: hip flexors, tibialis Anterior, quadriceps , toe extension (EHL), plantarflexion, 5/5: deltoids, biceps, triceps, wrist flexion, wrist extension, 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[employer] Motor examination - left side: 4/5: hip flexors, 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[employer], quadriceps, tibialis Anterior, toe extension (EHL), plantarflexion, 5/5: deltoids, biceps, triceps, wrist flexion, wrist extension Detailed sensory examination: intact, light touch, temperature Reflex and gait examination: intact Reflexes: Biceps: 1+, Triceps: 1+, Brachioradialis: 1+, Patella: 1+, Achilles: 1 + Mental Status Examination: awake, alert, oriented to person, oriented to place, oriented to time, follows commands appropriately, answers questions appropriately, no agnosia, no aphasia, no aproxia Cranial nerve examination: PERRL, EOMI, visual schneider intact, corneal reflexes brisk symmetrically, sensory to face intact, mastication intact, no facial asymmetry is present, no dysarthria, hearing is intact symmetrically, soft palate elevates bilaterally upon phonation, gag reflex intact, flexes SCM and trapezius muscles symmetrically with full power, tongue protrudes midline, no atrophy or facial fasiculations present Results - Laboratory Findings CBC and BMP: 12/13/17 17:50 12/13/17 17:50 Abnormal lab findings: Abnormal lab results WBC 14.9 K/mcL (4.3-11.1) H 12/13/17 17:50 RBC 5.31 M/mcL (3.82-4.97) H 12/13/17 17:50 Hct 46.7 % (35.3-44.9) H 12/13/17 17:50 MCH 27.9 pg (28.0-33.3) L 12/13/17 17:50 Monocytes # 1.5 K/mcL (0.0-1.3) H 12/13/17 17:50 ALT 61 Units/L (7-52) H 12/13/17 17:50 Ur Specific [place] 1.026 (1.010-1.025) H 12/13/17 19:25 - Diagnostic Findings Additional findings: CT of the neck negative for any vascular stenosis. CT of the cervical thoracic and lumbar spine shows degenerative changes but no critical stenosis reported. She did have an MRI of the lumbar spine earlier that shows multilevel degenerative changes Consult Discharge Plan - Plan Referrals: Able-Sally Sullivan DO [Primary Care Provider] -
[2017-12-14] MEDS: *HR* OxyCODONE/APAP 10/325 TABLET PO PRN (21:42)
[2017-12-15] MEDS ORDERED: 0.9 % Sodium Chloride 1,000 ML ONE (00:26)
[2017-12-15] MEDS: 0.9 % Sodium Chloride 1,000 ML IVC SCH ×2 (00:28→00:29)
[2017-12-15 03:41] LABS: Basophils % 0.4 %; Eosinophils # 0.4 K/mcL (0.0-0.6); Eosinophils % 4.2 %; Hematocrit 42.9 % (35.3-44.9); Hemoglobin 13.6 g/dL (11.5-15.4); Immature Granulocytes % 0.6 % (0-4); Lymphocytes # 2.8 K/mcL (0.6-4.6); Lymphocytes % 27.5 %; Mean Corpuscular HGB Conc 31.7 g/dL (31.6-35.5); Mean Corpuscular Hemoglobin 28.2 pg (28.0-33.3); Mean Platelet Volume 11.5 fL (9.4-12.4); Monocytes # 1.3 K/mcL (0.0-1.3); Monocytes % 12.7 %; Neutrophils # 5.5 K/mcL (1.6-8.9); Platelet Count 229 K/mcL (140-400); Red Blood Count 4.82 M/mcL (3.82-4.97); Red Cell Distribution Width 13.2 % (11.5-14.5); Segmented Neutrophils % 54.6 %
[2017-12-15 04:03] LABS: BUN/Creatinine Ratio 17 (6-26); Blood Urea Nitrogen 15 mg/dL (8-23); Calcium 8.5 mg/dL (8.6-10.3); Carbon Dioxide 26 mEq/L (23-29); Chloride 106 mEq/L (98-107); Glucose 114 mg/dL (70-105); Osmolality,Calculated 290 (280-300); Potassium 4.2 mEq/L (3.5-5.1); Sodium 139 mEq/L (136-145); eGFR For African Americans > 60 (> 60); eGFR For Non-African Americans > 60 (> 60)
[2017-12-15] MEDS: *HR* OxyCODONE/APAP 10/325 TABLET PO PRN (07:20)
[2017-12-15] MEDS ORDERED: *HR* OxyCODONE/APAP 10/325 TABLET PO PRN (07:49)
[2017-12-15] MEDS ORDERED: Fluticasone Propionate Nasal 50 MCG/SPRAY BOTTLE NS SCH (09:00)
--- NOTE | 2017-12-15 10:14 | Discharge Summary ---
- NOTES TO OUTPATIENT PROVIDER Notes to Outpatient Provider: Patient will need to get evaluated by ENT as an outpatient per neurology's recommendations. 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 Neurology thinks this may have been from a previous sinus surgery. I did confirm with the patient and she had 3 sinus surgeries int he past. because of her symptoms, we recommend a f/u with ENT Date of Encounter: 12/15/17 Time of Encounter: 10:12 - Discharge Diagnosis (1) Lumbar degenerative disc disease Priority: Secondary Status: Acute (2) Leukocytosis Priority: Primary Status: Resolved Qualifiers: Leukocytosis type: unspecified Qualified Code(s): D72.829 - Elevated white blood cell count, unspecified (3) Dizziness Priority: Primary Status: Acute (4) Fall Priority: Primary Status: Acute Qualifiers: Encounter type: initial encounter Qualified Code(s): W19.XXXA - Unspecified fall, initial encounter Hospital course: Ms. Higgins is a 62 year old female with a past medical history of brain mass, Chiari malformation status post craniectomy who presented to the hospital with ongoing worsening vertigo as well as a recent fall which the patient was very scared about. The patient has a known history of benign positional vertigo and sees a vestibular rehabilitation at [facility]. Patient states she only has had 1 treatment done with them which has helped and mproved her vertigo symptoms. She states that she does continues to take Antivert which takes the edge off but her dizziness is never completely gone. She also stated that she fell in the last couple of days due to her dizziness. She had one episode of a fall where the patient states she briefly lost consciousness and she is not aware of how long that lasted. She was admitted and seen by neurology. An extensive work up was done including an echo, MRA head/neck, MRI brain, CT head , CTA neck, CT spine, CT chest, and an EED. Some of this was done in the ED and then by recommendation by neurology given her history of chiari. The work up was significant for an MRI brain with deformity of the left orbital roof with mild adjacent left frontal lobe encephalomalacia and herniation stable from prior head CT. Neurology were aware of these findings which were possibly due to her previous history of multiple sinus surgeries. They recommended ENT evaluation as well as follow up with them. She was discharged on 12/15. I have advised the patient not to drive. - Time Spent with Patient Total time spent providing and/or coordinating discharge services: Greater than 30 minutes - Discharge Medications Home Medications: Budesonide [Rhinocort Allergy] 1 spray NS DAILY 12/02/17 [History] LORazepam [Ativan] 0.5 mg PO DAILY PRN 12/02/17 [History] Oxycodone HCl/Acetaminophen [Percocet 10-325 mg Tablet] 1 each PO TID PRN [History] Tizanidine HCl 4 mg PO BID PRN 12/02/17 [History] Polyethylene Glycol 3350 [MiraLAX] 17 gm PO DAILY powd.pack 12/03/17 [Rx] Docusate Sodium [Dok] 200 mg PO BID PRN 12/14/17 [History] Lidocaine Patch [Lidoderm 5% patch] 1 patch TP DAILY 12/14/17 [History] Meclizine HCl [Verticalm] 25 mg PO TID PRN 12/14/17 [History] Naproxen 500 mg PO BID PRN 12/14/17 [History] Allergies/Adverse Reactions: 3 Allergy/AdvReac Type Severity Reaction Status Date / Time azithromycin [From Zithromax] Allergy Swelling Verified 12/13/17 17:32 of Lip/Tongue/Throat Penicillins Allergy Swelling Verified 12/13/17 17:32 of Lip/Tongue/Throat propoxyphene Allergy Swelling Verified 12/13/17 17:32 [From Darvocet-N] of Lip/Tongue/Throat Date of admission: 12/14/17 08:40 Primary care physician: Sally Shankar Consults: 12/14/17 09:26 Consult to Physical Therapy [CONS] Routine Comment: Evaluate, develop and implement POC Reason for Consult: Hx of vertigo/ now worsening w inability to ambulate and frequent falls. Does patient have active BEDREST order?: No Is patient medically & hemodynamically stable?: Yes 12/14/17 15:18 Consult to Interpret Exam [CONS] Routine Consulting Provider: Terry Arrington I Consult to Interpret Exam: Interpret EEG - Constitutional Vitals: Temp Pulse Resp BP Pulse Ox 99.0 F 75 16 132/81 94 12/15/17 07:14 12/15/17 07:14 12/15/17 07:14 12/15/17 07:14 12/15/17 07:14 - Patient Status Disposition: Home, Self-Care Condition: Good Overall status at discharge: patient is progressing back to baseline - Discharge Instructions Follow Up With: Raad-Sally Sullivan DO [Primary Care Provider] - 12/21/17 11:00 am ( Please follow up as schedule...) Terry Arrington MD [Partnered Physician] - 12/27/17 9:30 am (1-2 weeks, Please follow up as schedule...) Additional Instructions: No driving until cleared by a neurologist See an ENT doctor. Get referral for that from your PCP or the neurologist. - Diet and Activity Activity: increase activity as tolerated Diet: regular diet
[2017-12-15 11:22] VITALS: BP 137/79
--- NOTE | 2017-12-15 13:00 | Neurology Progress Note ---
Date of Encounter: 12/15/17 Time of Encounter: 07:30 Assessment and Plan (1) Positional vertigo Current Visit: Yes Status: Acute At this time patient seems to be stable her positional vertigo has improved she is been taking meclizine which seems to be helping. MRI findings were discussed with the patient no evidence of any acute abnormality at the same time no evidence of any significant CSF blockage Chiari seem to be stable she did have noted to have a prior changes in the posterior fossa as commonly seen after the Chiari surgery no abnormal signal were reported. As far as other findings on the MRI was concern in the left frontal lobe 80 evidence of question of herniation/encephalomalacia patient did acknowledges that she had a history of multiple sinus surgeries it is not in acute finding added was noted on her images as well. I have discussed it with the radiologist bacon skin lifter who has reviewed the prior images and noted similar findings but slightly more prominent now as compared to before. It is likely related to her previous sinus surgery really doubt it is that it is causing her current symptoms of dizziness and lightheadedness I would suggest that she should have a follow-up appointment be ENT as she may require further imaging studies that could be done as an outpatient especially does not acute finding As far as blood pressure issues are concerned and seems to be stable she is not as lightheaded that she is now that she was reporting previously asked with her hospitalist to check her orthostatic to make sure there is no significant drop in her blood pressure. Regardless overall patient is a stable no acute sign of his stroke or any other posterior circulation abnormalities no critical stenosis or reported she would likely need neurology follow-up as well as ENT follow-up as an outpatient also noted to have underlying anxiety and that might need to be addressed as is likely contributing to her symptoms (2) History of Chiari malformation Current Visit: Yes Status: Acute (3) Status post craniectomy Current Visit: Yes Status: Acute (4) Dizziness Current Visit: Yes Status: Acute (5) Fall Current Visit: Yes Status: Acute Qualifiers: Encounter type: initial encounter Qualified Code(s): W19.XXXA - Unspecified fall, initial encounter (6) Lumbar degenerative disc disease Current Visit: No Status: Acute Subjective Interval history: Patient seen as an follow-up she seems to be doing better dizziness is not as bad as she was having it earlier not much spinning sensation she was able to get up she is sitting now eating her breakfast she denies any double vision denies any new focal motor weakness. MRI of the brain did not show any acute abnormality. No evidence of an acute intracranial hemorrhage.normal signal voids within the major intracranial vessels appear maintained. There is a dilated empty sella turcica. There is evidence of prior suboccipital craniectomy for her Chiari malformation in . 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 MRA of the head was negative for any critical stenosis except that there was some attenuation of the right vertebral artery Objective - Constitutional Vitals: Temp Pulse Resp BP Pulse Ox 98.7 F 73 17 137/79 97 12/15/17 11:21 12/15/17 11:21 12/15/17 11:21 12/15/17 11:21 12/15/17 11:21 - Neurological Exam Sensorimotor examination: Present: intact Motor examination - right side: 4/5: deltoids, biceps, triceps, wrist flexion, wrist extension, street inspector, hip flexors, tibialis Anterior, quadriceps, toe extension (EHL), plantarflexion Motor examination - left side: 4/5: deltoids, biceps, triceps, wrist flexion, wrist extension, hip flexors, street inspector, quadriceps, tibialis Anterior, toe extension (EHL), plantarflexion Sensation intact: Present: intact, light touch, temperature Reflex and gait examination: intact Reflexes: Biceps: 1+, Triceps: 1+, Brachioradialis: 1+, Patella: 1+, Achilles: 1 + Mental Status Examination: Present: awake, alert, oriented to person, oriented to place, oriented to time, follows commands appropriately, answers questions appropriately, no agnosia, no aphasia, no aproxia Cranial nerve examination: Present: PERRL, EOMI, visual schneider intact, corneal reflexes brisk symmetrically, sensory to face intact, mastication intact, no facial asymmetry is present, no dysarthria, hearing is intact symmetrically, soft palate elevates bilaterally upon phonation, gag reflex intact, flexes SCM and trapezius muscles symmetrically with full power, tongue protrudes midline, no atrophy or facial fasiculations present Results - Laboratory Findings CBC and BMP: 12/15/17 02:59 12/15/17 02:59 Abnormal lab findings: Abnormal lab results Glucose 114 mg/dL (70-105) H 12/15/17 02:59 Calcium 8.5 mg/dL (8.6-10.3) L 12/15/17 02:59 ALT 61 Units/L (7-52) H 12/13/17 17:50 Ur Specific [place] 1.026 (1.010-1.025) H 12/13/17 19:25 Consult Discharge Plan - Plan Additional Instructions: No driving until cleared by a neurologist See an ENT doctor. Get referral for that from your PCP or the neurologist. Referrals: Raad-Sally Sullivan DO [Primary Care Provider] - 12/21/17 11:00 am ( Please follow up as schedule...) Terry Arrington MD [Partnered Physician] - (1-2 weeks)
--- NOTE | 2017-12-15 14:05 | Physician Discharge Referral ---
Home Health/Hosp Referral Info Transfer to: Home Health - Diagnosis (1) Lumbar degenerative disc disease Priority: Secondary Status: Acute (2) Leukocytosis Priority: Primary Status: Resolved (3) Dizziness Priority: Primary Status: Acute (4) Fall Priority: Primary Status: Acute - Respiratory Orders Smoking Cessation: Smoking cessation has been advised. For more information, call the [place] Tobacco Quit Line at 9-334-ZLXI-NOW. - Services Needed Following services are medically necessary services: Home Health Aide - Transfer Medications Home Medications: Budesonide [Rhinocort Allergy] 1 spray NS DAILY 12/02/17 [History] LORazepam [Ativan] 0.5 mg PO DAILY PRN 12/02/17 [History] Oxycodone HCl/Acetaminophen [Percocet 10-325 mg Tablet] 1 each PO TID PRN [History] Tizanidine HCl 4 mg PO BID PRN 12/02/17 [History] Polyethylene Glycol 3350 [MiraLAX] 17 gm PO DAILY powd.pack 12/03/17 [Rx] Docusate Sodium [Dok] 200 mg PO BID PRN 12/14/17 [History] Lidocaine Patch [Lidoderm 5% patch] 1 patch TP DAILY 12/14/17 [History] Meclizine HCl [Verticalm] 25 mg PO TID PRN 12/14/17 [History] Naproxen 500 mg PO BID PRN 12/14/17 [History] Allergies/Adverse Reactions: 3 Allergy/AdvReac Type Severity Reaction Status Date / Time azithromycin [From Zithromax] Allergy Swelling Verified 12/13/17 17:32 of Lip/Tongue/Throat Penicillins Allergy Swelling Verified 12/13/17 17:32 of Lip/Tongue/Throat propoxyphene Allergy Swelling Verified 12/13/17 17:32 [From Darvocet-N] of Lip/Tongue/Throat Certification: Further, I certify that my clinical findings support that this patient is homebound (i.e. absences from home require considerable and taxing effort and are for medical reasons or christian services or infrequently or short duration when for other reasons) because: Homebound Reason: Patient requires assistance of a person or device to safely leave home Attestation: My signature below is to certify that this patient is under my care and that I, or nurse practitioner, or a physician's social worker assistant working with me, has a face-to -face encounter with this patient.
--- NOTE | 2017-12-16 15:23 | Electrocardiograph Report ---
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
== END 2017-12-15 16:43 | disposition home or self-care (01) ==
LOC: EMEROO 17:12 → 2ANU 17:12 → SUATTDRO 12-14 08:40 → 2ANU 12-14 09:25
PROVIDERS: ADMIT Internal Medicine; ATTEND Internal Medicine

== ENCOUNTER 2019-05-25 16:16 | Inpatient (IN) ==
[2019-05-26] MEDS ORDERED: *HR* HYDROcodone/Acet 5/325 mg TABLET PO PRN (00:20)
[2019-05-26] MEDS ORDERED: Naloxone 0.4 MG/ML INJ IVP PRN (00:20)
[2019-05-26] MEDS ORDERED: Acetaminophen 325 MG TABLET PO PRN (00:20)
[2019-05-26] MEDS ORDERED: Ondansetron 4 MG/2 ML VIAL IVP PRN (00:20)
[2019-05-26 00:30] LABS: Basophils # 0.1 K/mcL (0.0-0.2); Basophils % 0.6 %; Eosinophils # 0.1 K/mcL (0.0-0.6); Eosinophils % 1.1 %; Hematocrit 45.9 % (35.3-44.9); Hemoglobin 14.9 g/dL (11.5-15.4); Immature Granulocytes % 0.2 % (0-4); Lymphocytes # 2.1 K/mcL (0.6-4.6); Lymphocytes % 21.2 %; Mean Corpuscular HGB Conc 32.5 g/dL (31.6-35.5); Mean Corpuscular Hemoglobin 28.7 pg (28.0-33.3); Mean Corpuscular Volume 88.3 fL (83.0-100.0); Mean Platelet Volume 13.3 fL (9.4-12.4); Monocytes # 0.7 K/mcL (0.0-1.3); Monocytes % 7.4 %; Neutrophils # 6.8 K/mcL (1.6-8.9); Platelet Count 158 K/mcL (140-400); Red Cell Distribution Width 12.6 % (11.5-14.5); Segmented Neutrophils % 69.5 %; White Blood Count 9.8 K/mcL (4.3-11.1)
[2019-05-26] MEDS ORDERED: *HR* HYDROmorphone 2 MG TABLET PO ONE (00:35)
[2019-05-26 00:50] LABS: Alanine Aminotransferase 16 Units/L (7-52); Albumin 4.2 g/dL (3.5-5.7); Albumin/Globulin Ratio 1.4 (1.1-2.2); Alkaline Phosphatase 85 Units/L (34-104); Aspartate Amino Transferase 22 Units/L (13-39); BUN/Creatinine Ratio 17 (6-26); Bilirubin,Total 1.3 mg/dL (0.3-1.0); Blood Urea Nitrogen 12 mg/dL (8-23); Calcium 9.2 mg/dL (8.6-10.3); Carbon Dioxide 22 mEq/L (23-29); Chloride 103 mEq/L (98-107); Globulin 3.1 g/dL (2.4-3.5); Glucose 73 mg/dL (70-105); Osmolality,Calculated 276 (280-300); Potassium 3.8 mEq/L (3.5-5.1); Sodium 134 mEq/L (136-145); Total Protein 7.3 g/dL (6.4-8.9); eGFR For African Americans > 60 (> 60); eGFR For Non-African Americans > 60 (> 60)
[2019-05-26 00:52] LABS: Albumin 4.3 g/dL (3.5-5.7); Albumin/Globulin Ratio 1.3 (1.1-2.2); Bilirubin,Direct 0.2 mg/dL (0.0-0.2); Bilirubin,Indirect 1.2 mg/dL (0.0-1.2); Bilirubin,Total 1.4 mg/dL (0.3-1.0); Globulin 3.2 g/dL (2.4-3.5); Total Protein 7.5 g/dL (6.4-8.9)
[2019-05-26 01:08] LABS: Amylase 33 Units/L (29-103); Lipase 17 Units/L (11-82)
[2019-05-26] MEDS: 0.9 % Sodium Chloride 1,000 ML IVC SCH (01:44)
[2019-05-26 08:23] LABS: Chol/HDL Ratio 5.3 (0-4.9)
[2019-05-26] MEDS: *HR* OxyCODONE Immed Rel 5 MG TABLET PO PRN (14:26)
[2019-05-26] MEDS: predniSONE 20 MG TABLET PO SCH (16:42)
[2019-05-26] MEDS ORDERED: (Cyclosporine [Restasis] 1 DROP) OP PRN (17:31)
[2019-05-26] MEDS ORDERED: NON-FORMULARY MEDICATION 1 EACH EACH (Ipratropium/Albuterol Sulfate [Combivent Respimat In IH PRN (17:31)
[2019-05-26] MEDS ORDERED: Ipratropium/Albuterol Neb 3 ML IH PRN (18:17)
[2019-05-26] MEDS: *HR* LORazepam 0.5 MG TABLET PO PRN (20:21)
[2019-05-27] MEDS: 0.9 % Sodium Chloride 1,000 ML IVC SCH (01:35)
[2019-05-27 03:06] LABS: Hematocrit 42.4 % (35.3-44.9); Hemoglobin 13.8 g/dL (11.5-15.4); Immature Platelets 11.2 % (1.1-6.1); Mean Corpuscular HGB Conc 32.5 g/dL (31.6-35.5); Mean Corpuscular Hemoglobin 28.8 pg (28.0-33.3); Mean Corpuscular Volume 88.3 fL (83.0-100.0); Red Blood Count 4.8 M/mcL (3.82-4.97); Red Cell Distribution Width 12.7 % (11.5-14.5); White Blood Count 7.1 K/mcL (4.3-11.1)
[2019-05-27 03:17] LABS: BUN/Creatinine Ratio 31 (6-26); Blood Urea Nitrogen 23 mg/dL (8-23); Calcium 8.9 mg/dL (8.6-10.3); Carbon Dioxide 25 mEq/L (23-29); Chloride 106 mEq/L (98-107); Glucose 127 mg/dL (70-105); Osmolality,Calculated 289 (280-300); Potassium 4.4 mEq/L (3.5-5.1); Sodium 137 mEq/L (136-145); eGFR For African Americans > 60 (> 60); eGFR For Non-African Americans > 60 (> 60)
[2019-05-27] MEDS: predniSONE 20 MG TABLET PO SCH (09:56)
[2019-05-27] MEDS: Fluticasone Propionate Nasal 50 MCG/SPRAY BOTTLE NS SCH (09:57)
[2019-05-27] MEDS: *HR* OxyCODONE Immed Rel 5 MG TABLET PO PRN ×2 (10:00→20:42)
[2019-05-28 01:33] LABS: Hematocrit 43.9 % (35.3-44.9); Hemoglobin 14.2 g/dL (11.5-15.4); Mean Corpuscular HGB Conc 32.3 g/dL (31.6-35.5); Mean Corpuscular Hemoglobin 28.3 pg (28.0-33.3); Mean Corpuscular Volume 87.6 fL (83.0-100.0); Mean Platelet Volume 12.5 fL (9.4-12.4); Platelet Count 202 K/mcL (140-400); Red Blood Count 5.01 M/mcL (3.82-4.97); Red Cell Distribution Width 12.8 % (11.5-14.5)
[2019-05-28 01:51] LABS: BUN/Creatinine Ratio 27 (6-26); Blood Urea Nitrogen 25 mg/dL (8-23); Calcium 9.2 mg/dL (8.6-10.3); Carbon Dioxide 26 mEq/L (23-29); Chloride 104 mEq/L (98-107); Glucose 98 mg/dL (70-105); Osmolality,Calculated 290 (280-300); Potassium 3.8 mEq/L (3.5-5.1); Sodium 138 mEq/L (136-145); eGFR For African Americans > 60 (> 60); eGFR For Non-African Americans > 60 (> 60)
[2019-05-28 02:02] LABS: White Blood Count 11.2 K/mcL (4.3-11.1)
[2019-05-28] MEDS: *HR* OxyCODONE Immed Rel 5 MG TABLET PO PRN (07:43)
[2019-05-28] MEDS: predniSONE 20 MG TABLET PO SCH (07:43)
[2019-05-28] MEDS: Fluticasone Propionate Nasal 50 MCG/SPRAY BOTTLE NS SCH (11:02)
[2019-05-28] MEDS: tiZANidine 4 MG TABLET PO PRN (11:03)
[2019-05-28] MEDS: Ketorolac 30 MG/ML VIAL IVP PRN ×2 (11:03→21:11)
[2019-05-28] MEDS ORDERED: SODIUM CHLORIDE/NAHCO3/KCL/PEG 4,000 ML SOLN.RECON PO ONE (13:50)
[2019-05-28] MEDS: *HR* LORazepam 0.5 MG TABLET PO PRN (21:15)
[2019-05-29] MEDS: Ketorolac 30 MG/ML VIAL IVP PRN ×3 (04:25→19:07)
[2019-05-29 05:26] LABS: BUN/Creatinine Ratio 27 (6-26); Blood Urea Nitrogen 21 mg/dL (8-23); Calcium 9.6 mg/dL (8.6-10.3); Carbon Dioxide 22 mEq/L (23-29); Chloride 103 mEq/L (98-107); Glucose 114 mg/dL (70-105); Osmolality,Calculated 288 (280-300); Potassium 3.5 mEq/L (3.5-5.1); Sodium 137 mEq/L (136-145); eGFR For African Americans > 60 (> 60); eGFR For Non-African Americans > 60 (> 60)
[2019-05-29 05:44] LABS: Hematocrit 44.2 % (35.3-44.9); Hemoglobin 14.9 g/dL (11.5-15.4); Immature Platelets 14.8 % (1.1-6.1); Mean Corpuscular HGB Conc 33.7 g/dL (31.6-35.5); Mean Platelet Volume 12.9 fL (9.4-12.4); Red Blood Count 5.14 M/mcL (3.82-4.97); Red Cell Distribution Width 12.9 % (11.5-14.5); White Blood Count 12.6 K/mcL (4.3-11.1)
[2019-05-29] MEDS: Fluticasone Propionate Nasal 50 MCG/SPRAY BOTTLE NS SCH (09:17)
[2019-05-29] MEDS: predniSONE 20 MG TABLET PO SCH (09:17)
[2019-05-29] MEDS ORDERED: Propofol 500 MG/50 ML INFUS..BTL ONE (11:51)
[2019-05-29] MEDS ORDERED: Lidocaine -MPF 2% 2 ML VIAL ONE (11:55)
[2019-05-29] MEDS ORDERED: *HR* FentaNYL (PF) 100 MCG/2 ML VIAL ONE (12:45)
[2019-05-29] MEDS ORDERED: Simethicone 40 MG/0.6 ML MLS IR ONE (13:11)
[2019-05-29] MEDS: 0.9 % Sodium Chloride 500 ML IVC SCH (15:28)
[2019-05-29] MEDS: Sucralfate 1 GM TABLET PO SCH ×2 (15:36→20:06)
[2019-05-29] MEDS: tiZANidine 4 MG TABLET PO PRN (15:36)
[2019-05-30] MEDS: 0.9 % Sodium Chloride 500 ML IVC SCH (00:04)
[2019-05-30] MEDS: Gabapentin 100 MG CAPSULE PO SCH ×2 (00:25→08:28)
[2019-05-30] MEDS: Fluticasone Propionate Nasal 50 MCG/SPRAY BOTTLE NS SCH (08:28)
[2019-05-30] MEDS: predniSONE 20 MG TABLET PO SCH (08:28)
[2019-05-30] MEDS: Sucralfate 1 GM TABLET PO SCH (08:28)
[2019-05-30 08:45] VITALS: BP 147/80
[2019-05-30] MEDS: Ketorolac 30 MG/ML VIAL IVP PRN (11:12)
[2019-05-30] MEDS: *HR* LORazepam 0.5 MG TABLET PO PRN (13:43)
== END 2019-05-30 14:45 | disposition home or self-care (01) | DRG 347 ==
LOC: 3BNU → SUATTDRO 20:32
PROVIDERS: ADMIT Pharmacist; ATTEND Internal Medicine